=== PATIENT | female | born 1990 ===

== ENCOUNTER → 2020-06-21 | Outpatient (CLI) | payer OTHER | LOC: PLD 14:14 → LAB SHORT 14:14 | DX: R21 Rash and other nonspecific skin eruption (principal) | CPT/HCPCS: 88312 ==

== ENCOUNTER → 2023-08-28 | Outpatient (CLI) | payer BC ==
[2023-09-06 03:49] LABS: HPV GENOTYPE 16 Not Detected; HPV GENOTYPE 18 Not Detected; HPV HIGH RISK Not Detected; HPV SOURCE Vaginal
== END | disposition home or self-care (01) ==
LOC: LAB SHORT 11:08 → LAB 11:08
PROVIDERS: Obstetrics & Gynecology
DX: Z01.419 Encounter for gynecological examination (general) (routine) without abnormal findings (principal)
CPT/HCPCS: 87624; G0123

== ENCOUNTER → 2024-02-12 | Outpatient (CLI) | payer BC | END | disposition home or self-care (01) | LOC: LAB SHORT 09:31 → LAB 09:31 | DX: O09.523 Supervision of elderly multigravida, third trimester (principal) | CPT/HCPCS: 87081; 87150 ==

== ENCOUNTER 2024-03-07 06:58 | Inpatient (IN) | payer BC ==
[~2024-03-07] VITALS: Ht 167.6 cm; Wt 114.0 kg
[2024-03-07] VITALS (35 sets, daily range): BP systolic 105–146; BP diastolic 56–92
[2024-03-07] MEDS ORDERED: FentaNYL 2mcg/ml-Bup 0.1% Epd 250 ML EPI PRN (07:35)
[2024-03-07] MEDS ORDERED: Lactated Ringer's 1,000 ML IV SCH ×5 (07:35→16:10)
[2024-03-07] MEDS ORDERED: ePHEDrine Sulfate 50 MG/ML 1ML Injection XX PRN (07:35)
[2024-03-07] MEDS ORDERED: Carboprost Tromethamine 250 MCG/ML 1ML Amp IM PRN (07:40)
[2024-03-07] MEDS ORDERED: Acetaminophen 500 MG Tab PO PRN ×2 (07:40→16:10)
[2024-03-07] MEDS ORDERED: Misoprostol 200 MCG Tab BC PRN (07:40)
[2024-03-07] MEDS ORDERED: Misoprostol 200 MCG Tab PR PRN ×2 (07:40→16:20)
[2024-03-07] MEDS ORDERED: Calcium Carbonate 500 MG Tab Chew PO SCH (07:40)
[2024-03-07] MEDS ORDERED: Oxytocin 10 Unit / ML Vial IM PRN (07:40)
[2024-03-07] MEDS ORDERED: Ondansetron HCl 2 MG / ML 2ML Vial IV PRN (07:40)
[2024-03-07] MEDS ORDERED: Methylergonovine Maleate 0.2MG / ML 1ML Amp IM PRN ×2 (07:40→16:10)
[2024-03-07] MEDS ORDERED: Lactated Ringer's 1,000 ML IV PRN (07:40)
[2024-03-07] MEDS ORDERED: OXYTOCIN/RINGER'S LACTATE 500 ML IV PRN (07:40)
[2024-03-07 07:51] LABS: BASOPHILS ABSOLUTE AUTO 0.03 K/mm3 (0.00-0.23); BASOPHILS PERCENT AUTO 0 % (0-2); EOSINOPHILS PERCENT AUTO 1 % (0-6); Hematocrit 36.1 % (33.0-51.0); Hemoglobin 12.6 g/dL (11.5-16.0); IMMATURE GRAN ABSOLUTE AUTO 0.03 K/mm3 (0.00-0.10); IMMATURE GRAN PERCENT AUTO 0 % (0-1); LYMPHOCYTES ABSOLUTE AUTO 2.71 K/mm3 (0.84-5.20); LYMPHOCYTES PERCENT AUTO 38 % (21-46); MONOCYTES ABSOLUTE AUTO 0.56 K/mm3 (0.16-1.47); MONOCYTES PERCENT AUTO 8 % (4-13); Mean Corpuscular HGB 30.5 pg (26.0-34.0); Mean Corpuscular HGB Conc 34.9 g/dL (31.5-36.5); Mean Corpuscular Volume 87 fL (80-100); Mean Platelet Volume 10.5 fL (9.1-12.4); NEUTROPHILS ABSOLUTE AUTO 3.79 K/mm3 (1.96-9.15); NEUTROPHILS PERCENT AUTO 53 % (41-73); Platelet Count 196 K/mm3 (150-400); RDW Coefficient Variation 13.2 % (11.7-14.2); RDW Standard Deviation 41.9 fL (35.1-46.3); Red Blood Cell Count 4.13 M/mm3 (3.80-5.20); White Blood Cell Count 7.22 K/mm3 (4.00-11.30)
[2024-03-07] MEDS ORDERED: SERT100 PO (08:04)
[2024-03-07] MEDS ORDERED: PRENATAL TABLE1 EAC2 PO (08:05)
[2024-03-07] MEDS ORDERED: Tranexamic Acid 100 ML IV SCH (08:10)
[2024-03-07] MEDS ORDERED: Penicillin G Potassium 5,000,000 UNITS in NS 250 ML IV ONE (08:15)
[2024-03-07] MEDS ORDERED: PENICILLIN POTASSIUM ONE ×2 (08:25→12:02)
[2024-03-07] MEDS ORDERED: NS 250 ML IV ONE (08:25)
[2024-03-07] MEDS ORDERED: FentaNYL Citrate 50 MCG/ML 2 ML Injection IV PRN (09:20)
[2024-03-07] MEDS ORDERED: OXYTOCIN/RINGER'S LACTATE 500 ML IV SCH ×2 (10:10→16:15)
[2024-03-07] MEDS ORDERED: Penicillin G Potassium 2,500,000 UNITS in NS 100 ML IV SCH ×2 (12:00→13:00)
[2024-03-07] MEDS ORDERED: NS 0 ML IV ONE (12:02)
[2024-03-07] MEDS ORDERED: Benzocaine Topical Anesthetic Spray 60GM TOP PRN (16:15)
[2024-03-07] MEDS ORDERED: Lanolin Cream TOP PRN (16:15)
[2024-03-07] MEDS ORDERED: Ibuprofen 400 MG Tab PO PRN (16:15)
[2024-03-07] MEDS ORDERED: Ketorolac Tromethamine 30mg Vial IV PRN (16:15)
[2024-03-07] MEDS ORDERED: Witch Hazel/Glycerin PADS TOP PRN (16:15)
[2024-03-07] MEDS ORDERED: Docusate Sodium 100 MG Cap PO PRN (16:20)
[2024-03-08 04:50] VITALS: BP 129/83
[2024-03-08 08:14] VITALS: BP 130/90
[2024-03-08] MEDS ORDERED: Prenatal Vit/FE Fumarate/FA 1 Tab PO SCH (09:00)
[2024-03-08] MEDS ORDERED: Sertraline HCl 50 MG Tab PO SCH (09:00)
== END 2024-03-08 16:37 | disposition home or self-care (01) | DRG 807 ==
LOC: OBS 06:58 → BC 06:58 → OBS 07:13 → BC 07:14
PROVIDERS: ADMIT Obstetrics & Gynecology
PROC: 10E0XZZ Delivery of Products of Conception, External Approach (ICD-10-PCS; principal; 2024-03-07)
PROC: 3E0R3BZ Introduction of Anesthetic Agent into Spinal Canal, Percutaneous Approach (ICD-10-PCS; 2024-03-07)
PROC: 00HU33Z Insertion of Infusion Device into Spinal Canal, Percutaneous Approach (ICD-10-PCS; 2024-03-07)
PROC: 10907ZC Drainage of Amniotic Fluid, Therapeutic from Products of Conception, Via Natural or Artificial Opening (ICD-10-PCS; 2024-03-07)
DX: O99.824 Streptococcus B carrier state complicating childbirth (principal); Z37.0 Single live birth; O99.344 Other mental disorders complicating childbirth; Z3A.39 39 weeks gestation of pregnancy; F41.8 Other specified anxiety disorders; O69.81X0 Labor and delivery complicated by cord around neck, without compression, not applicable or unspecified; O71.82 Other specified trauma to perineum and vulva; O99.214 Obesity complicating childbirth
CPT/HCPCS: 36415; 51702; 85025; 86850; 86900; 86901; 86923; A9270; J1885; J2540; J2590; J7050; J7120

== ENCOUNTER 2025-06-30 15:23 | Emergency (ER) | payer BC ==
[~2025-06-30] VITALS: Ht 167.6 cm; Wt 107.0 kg
[~2025-06-30 15:23] MED LIST: PRENATAL TABLE1 EAC2 PO; SERT100 PO
[2025-06-30 15:42] VITALS: BP 134/79
[2025-06-30 16:21] LABS: BASOPHILS ABSOLUTE AUTO 0.03 K/mm3 (0.00-0.23); BASOPHILS PERCENT AUTO 0 % (0-2); EOSINOPHILS ABSOLUTE AUTO 0.17 K/mm3 (0.00-0.68); EOSINOPHILS PERCENT AUTO 2 % (0-6); Hematocrit 39.0 % (33.0-51.0); Hemoglobin 13.2 g/dL (11.5-16.0); IMMATURE GRAN ABSOLUTE AUTO 0.01 K/mm3 (0.00-0.10); IMMATURE GRAN PERCENT AUTO 0 % (0-1); LYMPHOCYTES ABSOLUTE AUTO 2.71 K/mm3 (0.84-5.20); LYMPHOCYTES PERCENT AUTO 35 % (21-46); MONOCYTES ABSOLUTE AUTO 0.47 K/mm3 (0.16-1.47); MONOCYTES PERCENT AUTO 6 % (4-13); Mean Corpuscular HGB Conc 33.8 g/dL (31.5-36.5); Mean Corpuscular Volume 89 fL (80-100); NEUTROPHILS ABSOLUTE AUTO 4.30 K/mm3 (1.96-9.15); NEUTROPHILS PERCENT AUTO 56 % (41-73); NRBC ABSOLUTE 0.00 K/mm3 (0.00-0.02); NRBC Auto 0.0 /100 WBC (0.0-0.2); Platelet Count 265 K/mm3 (150-400); RDW Coefficient Variation 11.9 % (11.7-14.2); RDW Standard Deviation 39.1 fL (35.1-46.3)
[2025-06-30 17:07] LABS: Alanine Aminotransfer (ALT/SGP 79.0 U/L (12-78); Albumin, Blood 4.0 g/dL (3.4-5.0); Albumin/Globulin Ratio 1.2 (0.8-1.8); Anion Gap 9.0 mmol/L (3-11); Aspartate Aminotrans (AST/SGOT 27.0 U/L (12-37); Bilirubin, Total 0.2 mg/dL (0.1-1.0); Blood Urea Nitrogen 10.0 mg/dL (8-24); CO2, Blood 24.0 mmol/L (21-32); Calcium, Blood 9.3 mg/dL (8.5-10.1); Chloride, Blood 108.0 mmol/L (98-108); Creatinine, Blood 0.58 mg/dL (0.40-1.00); Globulin, Blood 3.2 g/dL (2.2-4.0); Glucose, Blood 102.0 mg/dL (70-99); Potassium, Blood 3.6 mmol/L (3.5-5.5); Sodium, Blood 137.0 mmol/L (136-145); Total Protein, Blood 7.2 g/dL (6.4-8.2)
[2025-06-30 17:49] LABS: Source, Urine Clean Catch
[2025-06-30 17:55] LABS: Bilirubin, Urine Neg (Neg); Color, Urine Yellow (P-Yellow); Glucose Qualitative, Urine Neg (Neg); Ketones, Urine Neg (Neg); Leukocyte Esterase, Urine Neg (Neg); Protein, Urine 1+ (Neg); Specific Gravity, Urine 1.025 (1.003-1.022); Urobilinogen, Urine NORM (Normal)
[2025-06-30 18:13] LABS: White Blood Cells, Urine 0-2 /hpf (0-5)
== END 2025-06-30 18:19 | disposition home or self-care (01) ==
LOC: ER 15:23
PROVIDERS: Physician Assistant
DX: O20.0 Threatened abortion (principal); Z79.899 Other long term (current) drug therapy; Z3A.10 10 weeks gestation of pregnancy
CPT/HCPCS: 76801; 76817; 80053; 81001; 83690; 84702; 85025; 86900; 86901; 87086; 99284-25